=== PATIENT | male | born 1990 | race Caucasian/White ===

== ENCOUNTER 2016-10-06 15:40 | Inpatient (IN) | payer OTHER ==
[~2016-10-06] VITALS: Ht 182.9 cm; Wt 94.9 kg
[2016-10-06] MEDS ORDERED: SODIUM CHLORIDE 0.9% 1000ML 1,000 ML IV STA (16:19)
[2016-10-06] MEDS ORDERED: PANTOprazole INJ 80 MG in DEXTROSE 5% 100ML IV SCH (16:30)
[2016-10-06 16:42] LABS: BASO % 0.1 %; BASO ABS # 0.01 K/uL (0-0.2); COMPLETE YES; EOS % 0.3 %; HEMATOCRIT 27.6 % (42-52); IG% 0.3 %; LYMPH % 12.6 %; LYMPH ABS # 1.39 K/uL (1.2-3.4); MEAN CELL VOLUME 83.4 fL (80-100); MEAN CORPUSCULAR HEMOGLOBIN 29.3 pg (25-34); MEAN CORPUSCULAR HGB CONC 35.1 g/dl (32-36); MEAN PLATELET VOLUME 8.7 fL (7.4-10.4); MONO % 7.9 %; NEUT % 78.8 %; PLATELET COUNT 198 K/uL (130-400); RED BLOOD COUNT 3.31 M/uL (4.7-6.1); WHITE BLOOD COUNT 11.04 K/uL (4.8-10.8)
[2016-10-06] MEDS ORDERED: PANTOprazole INJ 40 MG in DEXTROSE 5% 100ML IV SCH (16:45)
[2016-10-06 17:00] LABS: BUN/CREATININE RATIO 18.8 (10-20); CALCIUM 8.2 mg/dl (8.5-10.1); CREATININE 1.2 mg/dl (0.60-1.40); POTASSIUM 4.5 mmol/L (3.5-5.1)
[2016-10-06 17:03] LABS: ALB/GLOB RATIO 1.4 (0.9-2)
[2016-10-06 17:04] LABS: PARTIAL THROMBOPLASTIN RATIO 0.9; PROTHROMBIN TIME (PATIENT) 10.8 SECONDS (9.0-12.0)
--- NOTE | 2016-10-06 17:20 | EMERGENCY ROOM VISIT NOTE ---
History First contact with patient: 16:11 Chief Complaint: GI ASSESSMENT Stated Complaint: GI BLEED Nursing Triage Summary: Pt arrives to ER via ALS from [facility]. Dark tarry stools and coffee ground emesis x2 days. Pt had syncopal episode in yard this afternoon. Pt is reportedly hemacult positive per [facility] reports. Pt has no complaints of pain at this time. History of Present Illness The patient is a 26 year old male who presents to the Emergency Room with complaints of GI bleeding. The patient states that 2 days ago he developed what he describes as coffee-ground emesis. He states that the same day he developed very dark-colored stool. The patient states that this has persisted. He states that today he was outside and had a syncopal episode. The patient is an inmate at [facility]. He was seen at [facility]. He had a positive Hemoccult stool. According to documentation, the patient also had positive orthostatic vital signs. The patient did receive IV fluids prior to arrival. The patient denies any true pain. He denies any shortness of breath or chest pain. He denies any abdominal pain. He denies any urinary symptoms. The patient denies any history of GI bleeding. He denies any history of reflux. Review of Systems A 10 system review of systems was completed with positives and pertinent negatives listed in the HPI. Past Medical/Surgical History Medical Problems: (1) Symptomatic anemia (2) Upper GI bleed Patient denies Social History Smoking Status: Former Smoker Housing Status: other ([facility]) Current/Historical Medications No Active Prescriptions or Reported Meds Physical Exam Vital Signs Date Time Temp Pulse Resp B/P (MAP) Pulse Ox O2 Delivery O2 Flow Rate FiO2 10/06/16 17:40 90 16 114/74 100 Room Air 10/06/16 16:36 85 120/67 100 Room Air 79 130/71 86 132/79 10/06/16 15:50 93 10/06/16 15:50 36.6 97 16 124/73 100 Room Air Physical Exam VITALS: Vitals are noted on the nurse's note and reviewed by myself. Vital signs stable. GENERAL: This is a 26-year-old male, in no acute distress, nondiaphoretic, well- developed well-nourished. SKIN: The skin was without rashes, erythema, edema, or bruising. There is no tenting of the skin. Capillary reflex less than 2 seconds. HEAD: Normocephalic atraumatic. EARS: The external ears are normal in appearance. EYES: Pupils equal round and reactive to light and accommodation. Conjunctivae without injection, sclerae without icterus. Extraocular movements intact. NOSE: Patent, turbinates without inflammation or discharge. MOUTH: Mucous membranes moist. Tonsils are not enlarged. Pharynx without erythema or exudate. Uvula midline. Airway patent. Tongue does not deviate. NECK: Supple without nuchal rigidity. No JVD. HEART: Regular rate and rhythm without murmurs gallops or rubs. LUNGS: Clear to auscultation bilaterally without wheezes, rales or rhonchi. No retractions or accessory muscle use. ABDOMEN: Positive bowel sounds x 4. Soft, nontender, without masses or organomegaly. GI: there was not much stool in the rectum. A very small amount of stool was trace guaiac positive. MUSCULOSKELETAL: No muscle atrophy, erythema, or edema noted. Full range of motion in all extremities. Normal gait. Strength 5/5 throughout. NEURO: Patient was alert and oriented to person place and time. No focal neurological deficits. Medical Decision & Procedures ER Provider Diagnostic Interpretation: ABDOMEN 2VIEW W/PA CHEST RTN CLINICAL HISTORY: 26 years-old Male presenting with gi bleeding, syncope. TECHNIQUE: PA view of the chest and supine and upright views of the abdomen were obtained. COMPARISON: None. FINDINGS: Cardiomediastinal silhouette normal. Lungs and pleural spaces clear. Normal bowel gas pattern. No evidence of free intraperitoneal gas, pneumatosis, or portal venous gas. Osseous structures normal. IMPRESSION: 1. No acute cardiopulmonary disease. No radiographic evidence of acute intra-abdominal pathology. Laboratory Results 10/06/16 16:29 Red Blood Count 3.31, Mean Corpuscular Volume 83.4, Mean Corpuscular Hemoglobin 29.3, Mean Corpuscular Hemoglobin Concent 35.1, Mean Platelet Volume 8.7, Neutrophils (%) (Auto) 78.8, Lymphocytes (%) (Auto) 12.6, Monocytes (%) (Auto) 7.9, Eosinophils (%) (Auto) 0.3, Basophils (%) (Auto) 0.1, Neutrophils # (Auto) 8.71, Lymphocytes # (Auto) 1.39, Monocytes # (Auto) 0.87, Eosinophils # (Auto) 0.03, Basophils # (Auto) 0.01 10/06/16 16:29 Test 10/06/16 16:29 10/06/16 18:30 White Blood Count 11.04 K/uL (4.8-10.8) Red Blood Count 3.31 M/uL (4.7-6.1) Hemoglobin 9.7 g/dL (14.0-18.0) Hematocrit 27.6 % (42-52) Mean Corpuscular Volume 83.4 fL (80-100) Mean Corpuscular Hemoglobin 29.3 pg (25-34) Mean Corpuscular Hemoglobin Concent 35.1 g/dl (32-36) Platelet Count 198 K/uL (130-400) Mean Platelet Volume 8.7 fL (7.4-10.4) Neutrophils (%) (Auto) 78.8 % Lymphocytes (%) (Auto) 12.6 % Monocytes (%) (Auto) 7.9 % Eosinophils (%) (Auto) 0.3 % Basophils (%) (Auto) 0.1 % Neutrophils # (Auto) 8.71 K/uL (1.4-6.5) Lymphocytes # (Auto) 1.39 K/uL (1.2-3.4) Monocytes # (Auto) 0.87 K/uL (0.11-0.59) Eosinophils # (Auto) 0.03 K/uL (0-0.5) Basophils # (Auto) 0.01 K/uL (0-0.2) RDW Standard Deviation 38.6 fL (36.4-46.3) RDW Coefficient of Variation 12.6 % (11.5-14.5) Immature Granulocyte % (Auto) 0.3 % Immature Granulocyte # (Auto) 0.03 K/uL (0.00-0.02) Prothrombin Time 10.8 SECONDS (9.0-12.0) Prothromb Time International Ratio 1.0 (0.9-1.1) Activated Partial Thromboplast Time 22.5 SECONDS (21.0-31.0) Partial Thromboplastin Ratio 0.9 Anion Gap 5.0 mmol/L (3-11) Est Creatinine Clear Calc Drug Dose 113.7 ml/min Estimated GFR () 96.1 Estimated GFR (Non- 83.0 BUN/Creatinine Ratio 18.8 (10-20) Lactic Acid Level 1.1 mmol/L (0.4-2.0) Calcium Level 8.2 mg/dl (8.5-10.1) Total Bilirubin 0.8 mg/dl (0.2-1) Aspartate Amino Transf (AST/SGOT) 15 U/L (15-37) Alanine Aminotransferase (ALT/SGPT) 18 U/L (12-78) Alkaline Phosphatase 54 U/L (45-117) Total Protein 6.2 gm/dl (6.4-8.2) Albumin 3.6 gm/dl (3.4-5.0) Globulin 2.6 gm/dl (2.5-4.0) Albumin/Globulin Ratio 1.4 (0.9-2) Lipase 171 U/L (73-393) Urine Color YELLOW Urine Appearance CLEAR (CLEAR) Urine pH 7.5 (4.5-7.5) Urine Specific [place] 1.018 (1.000-1.030) Urine Protein NEG (NEG) Urine Glucose (UA) NEG (NEG) Urine Ketones NEG (NEG) Urine Occult Blood NEG (NEG) Urine Nitrite NEG (NEG) Urine Bilirubin NEG (NEG) Urine Urobilinogen NEG (NEG) Urine Leukocyte Esterase NEG (NEG) Medications Administered Medications (Trade) Dose Ordered Sig/Ferdinand Route Start Time Stop Time Status Last Admin Dose Admin Sodium Chloride 1,000 ml @ 999 mls/hr Q1H1M STAT IV 10/06/16 16:19 10/06/16 17:19 DC 10/06/16 16:39 999 MLS/HR Pantoprazole Sodium 80 mg/ Dextrose 120 ml @ 480 mls/hr TODAY@1630 IV 10/06/16 16:30 10/06/16 16:44 DC 10/06/16 16:39 480 MLS/HR Pantoprazole Sodium 40 mg/ Dextrose 100 ml @ 20 mls/hr Q5H IV 10/06/16 16:45 10/06/16 21:44 DC 10/06/16 16:58 20 MLS/HR Sodium Chloride 1,000 ml @ 100 mls/hr Q10H IV 10/06/16 18:49 11/05/16 18:48 10/06/16 20:47 100 MLS/HR Procedure The patient was monitored on a shelter monitor. They maintained a normal sinus rhythm without ectopy. ECG Indication: syncope Rate (beats per minute): 93 Rhythm: normal sinus Findings: no acute ischemic change Comparison ECG Date: no prior available ED Course The patient was seen and examined. Previous visits were reviewed. The patient does not have a fever. He does have a mild leukocytosis of 11.04. His hemoglobin is low at 9.7 and hematocrit 27.6. His BUN is elevated at 23. INR is 1.0. Urinalysis is negative. Plain films of the abdomen did not reveal any free air The patient was hydrated with normal saline solution He was started on Protonix bolus and drip The patient presents to the emergency department with symptomatic anemia. The patient reports coffee ground emesis and melanic stools for the last 2 days. He had a syncopal episode earlier today. According to documentation from the [place] [facility], his stool was guaiac positive and he had positive orthostatic vital signs. The patient had received IV fluids prior to arrival in the emergency department and he was not orthostatic. The patient was anemic with hemoglobin 9.7. He does not have any history of anemia and there is no prior for comparison. The patient would benefit from further evaluation and management in the hospital. The case was discussed with the hospitalist service and they will evaluate the patient. The case was discussed with Dr. gamble who agrees with the assessment and plan. Medical Decision DIFFERENTIAL DIAGNOSIS: Hepatitis, cholecystitis, cholangitis, biliary colic, pancreatitis, pneumonia, subdiaphragmatic abscess, appendicitis, inguinal hernia , nephrolithiasis, inflammatory bowel disease, mesenteric adenitis, peptic ulcer disease, GERD, gastritis, pancreatitis, myocardial infarction, pericarditis, ruptured aortic aneurysm, appendicitis, gastroenteritis, bowel obstruction, splenic infarct, diverticulitis, mesenteric ischemia, metabolic, peritonitis, among others. Medication Reconcilliation Current Medication List: was personally reviewed by [facility] Blood Pressure Screening Patient's blood pressure: Normal blood pressure Blood pressure disposition: Did not require urgent referral Impression Primary Impression: Symptomatic anemia Additional Impression: Upper GI bleed Departure Information Dispostion Admitted as an inpatient Prescriptions No Active Prescriptions or Reported Meds Referrals Mane BRASHER (PCP) Patient Instructions My [facility] Problem Qualifiers
--- NOTE | 2016-10-06 17:39 | DIAGNOSTIC IMAGING REPORT ---
ABDOMEN 2VIEW W/PA CHEST RTN CLINICAL HISTORY: 26 years-old Male presenting with gi bleeding, syncope. TECHNIQUE: PA view of the chest and supine and upright views of the abdomen were obtained. COMPARISON: None. FINDINGS: Cardiomediastinal silhouette normal. Lungs and pleural spaces clear. Normal bowel gas pattern. No evidence of free intraperitoneal gas, pneumatosis, or portal venous gas. Osseous structures normal. IMPRESSION: 1. No acute cardiopulmonary disease. No radiographic evidence of acute intra-abdominal pathology. Electronically signed by: Yandel Reid M.D. 10/06/2016 5:38 PM Dictated Date/Time: 10/06/2016 5:36 PM
[2016-10-06 18:51] LABS: URINE APPEARANCE CLEAR (CLEAR); URINE BILIRUBIN NEG (NEG); URINE COLOR YELLOW; URINE NITRITE NEG (NEG); URINE PH 7.5 (4.5-7.5); URINE SPECIFIC GRAVITY 1.018 (1.000-1.030); UROBILINOGEN NEG (NEG); ZZUR CULT IF INDIC CLEAN CATCH NO
[2016-10-06 18:55] LABS: MANUAL MICROSCOPIC REQUIRED? NO; REVIEW REQ? NO
[2016-10-06] MEDS ORDERED: ONDANSETRON INJ 2 MG/ML 2 ML VIAL IV PRN (19:00)
--- NOTE | 2016-10-06 19:08 | History and Physical ---
History & Physical Date & Time of Service: Oct 06, 2016 at 19:00 Chief Complaint: Gi Bleed Primary Care Physician: Mane BRASHER History of Present Illness Source: patient This is a 26 year old male with no medical history presents with coffee ground, tarry emesis that began on Monday. He states he was in his usual state of health when he vomited chewing tobacco type vomitus. Later that day he noted that he had very dark colored stool as well. States that he had no pain associated with this. On the day of arrival, patient became very dizzy and had LOC. He was given some fluids en route and felt better. Upon arrival, noted to have Hgb of 9.7. No previous labwork present to compare. Patient states he has a family history of GI issues, including a paternal grandfather with stomach cancer and mom with unknown GI disease. He has never had this before. Denies medication use or any OTC medications. Has not taken NSAIDs recently. No smoking/alcohol use. Currently, symptom-free. Social History Smoking Status: Former Smoker Allergies Coded Allergies: No Known Allergies (Unverified , 10/06/16) Home Medications No Active Prescriptions or Reported Meds Review of Systems Constitutional: + weakness, + fatigue, No fever, No chills, No sweats, No weight loss Respiratory: + hemoptysis, No cough, No sputum, No wheezing, No shortness of breath, No dyspnea on exertion, No dyspnea at rest Cardiovascular: No chest pain, No edema, No palpitations Abdomen: + vomiting, + GI bleeding, No pain, No nausea, No diarrhea, No constipation Musculoskeletal: No joint pain Genitourinary - Male: No hematuria Neurologic: + weakness, + balance problems Endocrine: + fatigue Hematologic / Lymphatic: + abnormal bleeding/bruising Integumentary: No rash Allergic / Immunologic: No environmental allergies, No seasonal allergies Physical Exam Vital Signs Date Time Temp Pulse Resp B/P (MAP) Pulse Ox O2 Delivery O2 Flow Rate FiO2 10/06/16 17:40 90 16 114/74 100 Room Air 10/06/16 16:36 85 120/67 100 Room Air 79 130/71 86 132/79 10/06/16 15:50 93 10/06/16 15:50 36.6 97 16 124/73 100 Room Air General Appearance: WD/WN, no apparent distress Head: normocephalic, atraumatic ENT: hearing grossly normal Respiratory/Chest: chest non-tender, lungs clear, normal breath sounds, no respiratory distress, no accessory muscle use Cardiovascular: regular rate, rhythm, no edema, no murmur Abdomen/GI: normal bowel sounds, non tender, soft Extremities/Musculoskelatal: normal capillary refill, no pedal edema Neurologic/Psych: no motor/sensory deficits, alert, normal mood/affect, oriented x 3 Skin: normal color Diagnostics Laboratory Results Results Past 24 Hours Test 10/06/16 16:29 10/06/16 18:30 Range/Units White Blood Count 11.04 4.8-10.8 K/uL Red Blood Count 3.31 4.7-6.1 M/uL Hemoglobin 9.7 14.0-18.0 g/dL Hematocrit 27.6 42-52 % Mean Corpuscular Volume 83.4 80-100 fL Mean Corpuscular Hemoglobin 29.3 25-34 pg Mean Corpuscular Hemoglobin Concent 35.1 32-36 g/dl Platelet Count 198 130-400 K/uL Mean Platelet Volume 8.7 7.4-10.4 fL Neutrophils (%) (Auto) 78.8 % Lymphocytes (%) (Auto) 12.6 % Monocytes (%) (Auto) 7.9 % Eosinophils (%) (Auto) 0.3 % Basophils (%) (Auto) 0.1 % Neutrophils # (Auto) 8.71 1.4-6.5 K/uL Lymphocytes # (Auto) 1.39 1.2-3.4 K/uL Monocytes # (Auto) 0.87 0.11-0.59 K/uL Eosinophils # (Auto) 0.03 0-0.5 K/uL Basophils # (Auto) 0.01 0-0.2 K/uL RDW Standard Deviation 38.6 36.4-46.3 fL RDW Coefficient of Variation 12.6 11.5-14.5 % Immature Granulocyte % (Auto) 0.3 % Immature Granulocyte # (Auto) 0.03 0.00-0.02 K/uL Prothrombin Time 10.8 9.0-12.0 SECONDS Prothromb Time International Ratio 1.0 0.9-1.1 Activated Partial Thromboplast Time 22.5 21.0-31.0 SECONDS Partial Thromboplastin Ratio 0.9 Sodium Level 139 136-145 mmol/L Potassium Level 4.5 3.5-5.1 mmol/L Chloride Level 107 98-107 mmol/L Carbon Dioxide Level 27 21-32 mmol/L Anion Gap 5.0 3-11 mmol/L Blood Urea Nitrogen 23 7-18 mg/dl Creatinine 1.20 0.60-1.40 mg/dl Est Creatinine Clear Calc Drug Dose 113.7 ml/min Estimated GFR () 96.1 Estimated GFR (Non- 83.0 BUN/Creatinine Ratio 18.8 10-20 Random Glucose 100 70-99 mg/dl Lactic Acid Level 1.1 0.4-2.0 mmol/L Calcium Level 8.2 8.5-10.1 mg/dl Total Bilirubin 0.8 0.2-1 mg/dl Aspartate Amino Transf (AST/SGOT) 15 15-37 U/L Alanine Aminotransferase (ALT/SGPT) 18 12-78 U/L Alkaline Phosphatase 54 45-117 U/L Total Protein 6.2 6.4-8.2 gm/dl Albumin 3.6 3.4-5.0 gm/dl Globulin 2.6 2.5-4.0 gm/dl Albumin/Globulin Ratio 1.4 0.9-2 Lipase 171 73-393 U/L Urine Color YELLOW Urine Appearance CLEAR CLEAR Urine pH 7.5 4.5-7.5 Urine Specific [place] 1.018 1.000-1.030 Urine Protein NEG NEG Urine Glucose (UA) NEG NEG Urine Ketones NEG NEG Urine Occult Blood NEG NEG Urine Nitrite NEG NEG Urine Bilirubin NEG NEG Urine Urobilinogen NEG NEG Urine Leukocyte Esterase NEG NEG Diagnostic Radiology ABDOMEN 2VIEW W/PA CHEST RTN CLINICAL HISTORY: 26 years-old Male presenting with gi bleeding, syncope. TECHNIQUE: PA view of the chest and supine and upright views of the abdomen were obtained. COMPARISON: None. FINDINGS: Cardiomediastinal silhouette normal. Lungs and pleural spaces clear. Normal bowel gas pattern. No evidence of free intraperitoneal gas, pneumatosis, or portal venous gas. Osseous structures normal. IMPRESSION: 1. No acute cardiopulmonary disease. No radiographic evidence of acute intra-abdominal pathology. Normal EKG Impression Assessment and Plan his is a 26 year old male with no medical history presents with coffee ground emesis Upper GI Bleed Symptomatic Anemia history suggestive of a slow upper GI bleed, due to dark emesis and dark stools unsure of cause at this time PPI drip started and we can continue monitor in tele H/H q8 hours GI consulted for endoscopic evaluation; patient to have liquid diet tonight and NPO after midnight Zofran PRN type and crossed two units, hold transfusion for now IVFs - monitor BP FULL CODE VTE Prophylaxis VTE Risk Assessment Done? Y/N: Yes Risk Level: Very Low
[2016-10-06 20:45] VITALS: BP 133/75; PULSE 87; TEMP 37.1; O2SAT 100; Ht 182.9 cm; Wt 94.9 kg
[2016-10-06] MEDS: SODIUM CHLORIDE 0.9% 1000ML 1,000 ML IV SCH (20:47)
[2016-10-06] MEDS: PANTOprazole INJ 40 MG in DEXTROSE 5% 100ML IV SCH (21:44)
[2016-10-06 22:34] LABS: HEMATOCRIT 26.5 % (42-52)
[2016-10-07] VITALS (8 sets, daily range): BP systolic 106–147; BP diastolic 45–77; PULSE 65–82; TEMP 36.6–37; O2SAT 98–100
[2016-10-07] MEDS: PANTOprazole INJ 40 MG in DEXTROSE 5% 100ML IV SCH ×5 (02:26→23:03)
[2016-10-07] MEDS: SODIUM CHLORIDE 0.9% 1000ML 1,000 ML IV SCH ×3 (04:30→23:03)
[2016-10-07 06:55] LABS: BUN/CREATININE RATIO 11.7 (10-20); CALCIUM 8.9 mg/dl (8.5-10.1); CREATININE 1.1 mg/dl (0.60-1.40); POTASSIUM 3.9 mmol/L (3.5-5.1)
--- NOTE | 2016-10-07 08:37 | Progress Note ---
Subjective Date of Service: Oct 07, 2016. Subjective Pt evaluation today including: conversation w/ patient, physical exam, lab review, review of studies, review of inpatient medication list Saw/examined the patient in room 201 He's doing well, no dizziness, no bowel movements while here Some cramping around the umbilicus, but nothing significant no other issues to note Review of Systems Constitutional: No fever, No chills Respiratory: No shortness of breath Cardiac: No chest pain Abdomen: + GI bleeding, No pain, No nausea, No vomiting, No diarrhea Neurologic: No vertigo Medications Current Inpatient Medications Medications (Trade) Dose Ordered Sig/Ferdinand Route Start Time Stop Time Status Last Admin Dose Admin Sodium Chloride 1,000 ml @ 100 mls/hr Q10H IV 10/06/16 18:49 11/05/16 18:48 10/07/16 04:30 100 MLS/HR Ondansetron HCl (Zofran Inj) 4 mg Q6H PRN IV 10/06/16 19:00 11/05/16 18:59 Pantoprazole Sodium 40 mg/ Dextrose 100 ml @ 20 mls/hr Q5H IV 10/06/16 21:45 11/05/16 21:44 10/07/16 08:09 20 MLS/HR Objective Vital Signs Date Time Temp Pulse Resp B/P (MAP) Pulse Ox O2 Delivery O2 Flow Rate FiO2 10/07/16 08:00 Room Air 10/07/16 07:05 36.9 82 20 131/77 (95) 99 Room Air 10/07/16 04:30 Room Air 10/07/16 04:00 36.6 82 18 106/49 (68) 98 Room Air 10/07/16 00:00 36.6 78 18 131/54 (79) 99 Room Air 10/07/16 00:00 Room Air 10/06/16 20:45 37.1 87 16 133/75 100 Room Air 10/06/16 19:00 92 16 144/73 100 Room Air 10/06/16 17:40 90 16 114/74 100 Room Air 10/06/16 16:36 85 120/67 100 Room Air 79 130/71 86 132/79 10/06/16 15:50 93 10/06/16 15:50 36.6 97 16 124/73 100 Room Air Physical Exam General Appearance: no apparent distress Respiratory/Chest: lungs clear, normal breath sounds, no respiratory distress, no accessory muscle use Cardiovascular: regular rate, rhythm, no edema, no murmur Abdomen: normal bowel sounds, non tender, soft Laboratory Results Last 24 Hours Test 10/06/16 16:29 10/06/16 18:30 10/06/16 22:24 10/07/16 05:46 White Blood Count 11.04 K/uL Red Blood Count 3.31 M/uL Hemoglobin 9.7 g/dL 9.4 g/dL 10.2 g/dL Hematocrit 27.6 % 26.5 % 31.0 % Mean Corpuscular Volume 83.4 fL Mean Corpuscular Hemoglobin 29.3 pg Mean Corpuscular Hemoglobin Concent 35.1 g/dl Platelet Count 198 K/uL Mean Platelet Volume 8.7 fL Neutrophils (%) (Auto) 78.8 % Lymphocytes (%) (Auto) 12.6 % Monocytes (%) (Auto) 7.9 % Eosinophils (%) (Auto) 0.3 % Basophils (%) (Auto) 0.1 % Neutrophils # (Auto) 8.71 K/uL Lymphocytes # (Auto) 1.39 K/uL Monocytes # (Auto) 0.87 K/uL Eosinophils # (Auto) 0.03 K/uL Basophils # (Auto) 0.01 K/uL RDW Standard Deviation 38.6 fL RDW Coefficient of Variation 12.6 % Immature Granulocyte % (Auto) 0.3 % Immature Granulocyte # (Auto) 0.03 K/uL Prothrombin Time 10.8 SECONDS Prothromb Time International Ratio 1.0 Activated Partial Thromboplast Time 22.5 SECONDS Partial Thromboplastin Ratio 0.9 Sodium Level 139 mmol/L 141 mmol/L Potassium Level 4.5 mmol/L 3.9 mmol/L Chloride Level 107 mmol/L 108 mmol/L Carbon Dioxide Level 27 mmol/L 28 mmol/L Anion Gap 5.0 mmol/L 5.0 mmol/L Blood Urea Nitrogen 23 mg/dl 13 mg/dl Creatinine 1.20 mg/dl 1.10 mg/dl Est Creatinine Clear Calc Drug Dose 113.7 ml/min 121.6 ml/min Estimated GFR () 96.1 106.8 Estimated GFR (Non- 83.0 92.2 BUN/Creatinine Ratio 18.8 11.7 Random Glucose 100 mg/dl 92 mg/dl Lactic Acid Level 1.1 mmol/L Calcium Level 8.2 mg/dl 8.9 mg/dl Total Bilirubin 0.8 mg/dl Aspartate Amino Transf (AST/SGOT) 15 U/L Alanine Aminotransferase (ALT/SGPT) 18 U/L Alkaline Phosphatase 54 U/L Total Protein 6.2 gm/dl Albumin 3.6 gm/dl Globulin 2.6 gm/dl Albumin/Globulin Ratio 1.4 Lipase 171 U/L Urine Color YELLOW Urine Appearance CLEAR Urine pH 7.5 Urine Specific [place] 1.018 Urine Protein NEG Urine Glucose (UA) NEG Urine Ketones NEG Urine Occult Blood NEG Urine Nitrite NEG Urine Bilirubin NEG Urine Urobilinogen NEG Urine Leukocyte Esterase NEG Assessment and Plan his is a 26 year old male with no medical history presents with coffee ground emesis Upper GI Bleed Symptomatic Anemia 10/07 H/H is stable blood pressure and HRs are both improved today he is NPO after midnight GI consulted; possible EGD? 10/06 history suggestive of a slow upper GI bleed, due to dark emesis and dark stools unsure of cause at this time PPI drip started and we can continue monitor in tele H/H q8 hours GI consulted for endoscopic evaluation; patient to have liquid diet tonight and NPO after midnight Zofran PRN type and crossed two units, hold transfusion for now IVFs - monitor BP FULL CODE
--- NOTE | 2016-10-07 09:40 | Gastrointestinal Consultation ---
Gastrointestinal Consultation Date of Consultation: Oct 07, 2016 Attending Physician: Antonette Sky Consulting Physician: Joe Pan Reason for Consultation: Coffee ground emesis, anemia History of Present Illness Patient is a 26 year old male [facility] inmate who presented to ED w syncope which he said was witnessed, lasted only a few mins and no signs of seizures/ convulsions. He had been c/o N/V x 2 days since Monday. He reports emesis looks like chewing tobacco. Also noticed stools that looks like charcoal, but not tarry or sticky. He denies any fever, chills but felt clammy. Denies any sick contact. No meds on regular basis including NSAIDs. Also denies any drugs or tobacco products. He never had any GI issues such as GERD, dysphagia, ulcer, bowel habits changes. Mother and sibling does have issues w diarrhea, and his grandfather w hx of stomach ca. No family hx of IBD. Upon eval he was noted to be anemic, Hgb 9.4. He didn't receive any blood transfusions, Hgb now 10.2. + mild leukocytosis WBC 11. BUN mildly elevated at 23, normal Cr. Chest/abd xray grossly normal. Rectal exam w guaiac positive stools. He hasn't had any emesis or BM since admitted. Past Medical/Surgical History Past Medical History: See above. Past Surgical History: None Family History See above Social History Smoking Status: Former Smoker Alcohol Use: none Drug Use: none Housing Status: other ([facility]) Allergies Coded Allergies: No Known Allergies (Unverified , 10/06/16) Current Medications Home Meds and Scripts Medications Dose Route/Sig Max Daily Dose Days Date Category No Active Prescriptions or Reported Medications Rx Review of Systems Constitutional: No fever, No chills Respiratory: No cough, No shortness of breath Abdomen: + pain (mid lower), + nausea, + vomiting, + GI bleeding, No diarrhea Neuro: + see HPI (syncopal episode prior to admission) Physical Exam Date Time Temp Pulse Resp B/P (MAP) Pulse Ox O2 Delivery O2 Flow Rate FiO2 10/07/16 09:05 36.9 82 20 131/77 99 Room Air 10/07/16 08:00 Room Air 10/07/16 07:05 36.9 82 20 131/77 (95) 99 Room Air 10/07/16 04:30 Room Air 10/07/16 04:00 36.6 82 18 106/49 (68) 98 Room Air 10/07/16 00:00 36.6 78 18 131/54 (79) 99 Room Air 10/07/16 00:00 Room Air 10/06/16 20:45 37.1 87 16 133/75 100 Room Air 10/06/16 19:00 92 16 144/73 100 Room Air 10/06/16 17:40 90 16 114/74 100 Room Air 10/06/16 16:36 85 120/67 100 Room Air 79 130/71 86 132/79 10/06/16 15:50 93 10/06/16 15:50 36.6 97 16 124/73 100 Room Air General Appearance: WD/WN, no apparent distress Eyes: normal inspection, PERRL, EOMI Neck: supple, no JVD, trachea midline Respiratory/Chest: normal breath sounds, no respiratory distress, no accessory muscle use Cardiovascular: regular rate, rhythm, no gallop, no murmur Abdomen: normal bowel sounds, non tender, soft Extremities: normal inspection, no pedal edema, no calf tenderness Neurologic/Psych: alert, normal mood/affect, oriented x 3 Skin: normal color, no jaundice, no rash Laboratory Results Last 24 Hours Test 10/06/16 16:29 10/06/16 18:30 10/06/16 22:24 10/07/16 05:46 White Blood Count 11.04 K/uL Red Blood Count 3.31 M/uL Hemoglobin 9.7 g/dL 9.4 g/dL 10.2 g/dL Hematocrit 27.6 % 26.5 % 31.0 % Mean Corpuscular Volume 83.4 fL Mean Corpuscular Hemoglobin 29.3 pg Mean Corpuscular Hemoglobin Concent 35.1 g/dl Platelet Count 198 K/uL Mean Platelet Volume 8.7 fL Neutrophils (%) (Auto) 78.8 % Lymphocytes (%) (Auto) 12.6 % Monocytes (%) (Auto) 7.9 % Eosinophils (%) (Auto) 0.3 % Basophils (%) (Auto) 0.1 % Neutrophils # (Auto) 8.71 K/uL Lymphocytes # (Auto) 1.39 K/uL Monocytes # (Auto) 0.87 K/uL Eosinophils # (Auto) 0.03 K/uL Basophils # (Auto) 0.01 K/uL RDW Standard Deviation 38.6 fL RDW Coefficient of Variation 12.6 % Immature Granulocyte % (Auto) 0.3 % Immature Granulocyte # (Auto) 0.03 K/uL Prothrombin Time 10.8 SECONDS Prothromb Time International Ratio 1.0 Activated Partial Thromboplast Time 22.5 SECONDS Partial Thromboplastin Ratio 0.9 Sodium Level 139 mmol/L 141 mmol/L Potassium Level 4.5 mmol/L 3.9 mmol/L Chloride Level 107 mmol/L 108 mmol/L Carbon Dioxide Level 27 mmol/L 28 mmol/L Anion Gap 5.0 mmol/L 5.0 mmol/L Blood Urea Nitrogen 23 mg/dl 13 mg/dl Creatinine 1.20 mg/dl 1.10 mg/dl Est Creatinine Clear Calc Drug Dose 113.7 ml/min 121.6 ml/min Estimated GFR () 96.1 106.8 Estimated GFR (Non- 83.0 92.2 BUN/Creatinine Ratio 18.8 11.7 Random Glucose 100 mg/dl 92 mg/dl Lactic Acid Level 1.1 mmol/L Calcium Level 8.2 mg/dl 8.9 mg/dl Total Bilirubin 0.8 mg/dl Aspartate Amino Transf (AST/SGOT) 15 U/L Alanine Aminotransferase (ALT/SGPT) 18 U/L Alkaline Phosphatase 54 U/L Total Protein 6.2 gm/dl Albumin 3.6 gm/dl Globulin 2.6 gm/dl Albumin/Globulin Ratio 1.4 Lipase 171 U/L Urine Color YELLOW Urine Appearance CLEAR Urine pH 7.5 Urine Specific [place] 1.018 Urine Protein NEG Urine Glucose (UA) NEG Urine Ketones NEG Urine Occult Blood NEG Urine Nitrite NEG Urine Bilirubin NEG Urine Urobilinogen NEG Urine Leukocyte Esterase NEG Impression Patient is a 26 year old male [facility] inmate who was brought in after a syncopal episode, hx of n/v x 2 days w tobacco grounds looking emesis and charcoal colored stools per pt's report. He was noted to be anemic w Hgb 9-10. No more emesis/BM since admission. Plan - Keep NPO for EGD eval today; if negative will be ok for DC. - Continue PPI gtt. - Further recs after EGD. I saw and evaluated the patient. He presented with a significant drop in his blood count and melena. EGD requested for further evaluation. Physical examination No obvious distress, no abdominal tenderness Impression: Patient with suspected upper GI bleeding. We're planning for upper endoscopy today for therapy and further recommendations. Recommendations Nothing by mouth Continue Protonix EGD pending today Avoid nonsteroidals
[2016-10-07] MEDS ORDERED: FENTANYL CITRATE INJ 50 MCG/1 ML 2 ML VIAL ONE (14:26)
[2016-10-07] MEDS ORDERED: PROPOFOL IV EMULSION 10 MG/ML 20 ML VIAL IV ONE ×2 (14:26→14:59)
[2016-10-07] MEDS ORDERED: LIDOCAINE HCL 2% 2 ML VIAL (20MG/ML) ONE (14:26)
--- NOTE | 2016-10-07 14:46 | History & Physical Bridge Note ---
H&P Re-Evaluation Bridge Note: I have examined the patient, reviewed the History & Physical and in the interval since the performance of the History & Physical I have noted the following changes of clinical significance: No changes noted
[2016-10-07] MEDS ORDERED: EpINEphrine INJ 1MG/ML AMP 1 MG/ML AMP ONE (15:00)
--- NOTE | 2016-10-07 15:17 | Progress Note ---
Progress Note Date of Service Oct 07, 2016. Progress Note EGD completed today. Findings Flores-Quiroz tear at the gastroesophageal junction with evidence of recent bleeding and a visible vessel. This was treated with epinephrine injection and cautery endotherapy Recommendations Avoid nonsteroidals for 6 weeks Protonix drip continue for another 48 hours Upon discharge Protonix 40 mg 1 time daily for 12 weeks EGD in 3 months Would recommend an iron supplement 1-2 times daily for 8 weeks Advance to a liquid diet today Advance to regular diet on Monday
--- NOTE | 2016-10-07 15:23 | Anesthesiology Progress Note ---
Anesthesia Post Op Note Date & Time Oct 07, 2016 at 15:23 Vital Signs Pain Intensity: 0.0 Vital Signs Past 12 Hours Date Time Temp Pulse Resp B/P (MAP) Pulse Ox O2 Delivery O2 Flow Rate FiO2 10/07/16 15:20 88 16 134/75 (94) 100 Room Air 10/07/16 15:05 106 14 132/54 (80) 100 Room Air 10/07/16 14:29 36.6 76 18 101/57 (72) 99 Room Air 10/07/16 12:00 Room Air 10/07/16 11:13 36.8 74 20 140/67 (91) 100 Room Air 10/07/16 09:05 36.9 82 20 131/77 99 Room Air 10/07/16 08:00 Room Air 10/07/16 07:05 36.9 82 20 131/77 (95) 99 Room Air 10/07/16 04:30 Room Air 10/07/16 04:00 36.6 82 18 106/49 (68) 98 Room Air Notes Mental Status: alert / awake / arousable, participated in evaluation Pt Amnestic to Procedure: Yes Nausea / Vomiting: adequately controlled Pain: adequately controlled Airway Patency, RR, SpO2: stable & adequate BP & HR: stable & adequate Hydration State: stable & adequate Anesthetic Complications: no major complications apparent
--- NOTE | 2016-10-07 16:10 | GI REPORT ---
Procedure Date: 10/07/2016 2:35 PM Procedure: Upper GI endoscopy Indications: Melena Medicines: Monitored Anesthesia Care Complications: No immediate complications. Estimated blood loss: Minimal. Estimated Blood Loss: Estimated blood loss was minimal. Procedure: Pre-Anesthesia Assessment: - Prior to the procedure, a History and Physical was performed, and patient medications, allergies and sensitivities were reviewed. The patient's tolerance of previous anesthesia was reviewed. - The risks and benefits of the procedure and the sedation options and risks were discussed with the patient. All questions were answered and informed consent was obtained. - Patient identification and proposed procedure were verified prior to the procedure by the physician, the nurse and the educational administrator. The procedure was verified in the procedure room. - Pre-procedure physical examination revealed no contraindications to sedation. - ASA Grade Assessment: II - A patient with mild systemic disease. - After reviewing the risks and benefits, the patient was deemed in satisfactory condition to undergo the procedure. - Immediately prior to administration of medications, the patient was re-assessed for adequacy to receive sedatives. - The heart rate, respiratory rate, oxygen saturations, blood pressure, adequacy of pulmonary ventilation, and response to care were monitored throughout the procedure. - The physical status of the patient was re-assessed after the procedure. After obtaining informed consent, the endoscope was passed under direct vision. Throughout the procedure, the patient's blood pressure, pulse, and oxygen saturations were monitored continuously. The scope was introduced through the mouth, and advanced to the third part of duodenum. The upper GI endoscopy was accomplished without difficulty. The patient tolerated the procedure well. Findings: The upper third of the esophagus and middle third of the esophagus were normal. An inlet patch was seen just below the cricopharyngeal region. One superficial esophageal ulcer with no bleeding, but with stigmata of recent bleeding consisting of a red spot and visible vessel was found at the gastroesophageal junction. The lesion was 4 mm in largest dimension. Area was successfully injected with 1 mL of a 1:10,000 solution of epinephrine for hemostasis. Coagulation for hemostasis using multipolar 7 Fr Silver probe was successful. Patchy mild inflammation characterized by erythema and granularity was found in the gastric body. The examined duodenum was normal. Impression: - Normal upper third of esophagus and middle third of esophagus. - Inlet patch seen - Non-bleeding esophageal ulcer/Flores-pereyra tear. Injected. Treated with a monopolar probe. - Gastritis. - Normal examined duodenum. Recommendation: - Return patient to hospital [facility] for ongoing care. - Full liquid diet today. - Give Protonix (pantoprazole): 8 mg/hr IV by continuous infusion for 2 days. Then Protonix 40 mg per day for 12 weeks - Repeat EGD in 8 to 12 weeks. Joe Pan D.O. Joe Pan, 10/07/2016 3:10:43 PM This report has been signed electronically. Note Initiated On: 10/07/2016 2:35 PM I attest to the content of the Intraoperative Record and orders documented therein, exceptions below
[2016-10-07 16:21] LABS: HEMATOCRIT 28.2 % (42-52)
[2016-10-08] VITALS (8 sets, daily range): BP systolic 97–138; BP diastolic 49–71; PULSE 59–79; TEMP 36.6–36.9; O2SAT 94–100
[2016-10-08] MEDS: PANTOprazole INJ 40 MG in DEXTROSE 5% 100ML IV SCH ×5 (03:50→23:46)
[2016-10-08 05:42] LABS: HEMATOCRIT 26.5 % (42-52); MEAN CELL VOLUME 85.2 fL (80-100); MEAN CORPUSCULAR HEMOGLOBIN 29.3 pg (25-34); MEAN CORPUSCULAR HGB CONC 34.3 g/dl (32-36); MEAN PLATELET VOLUME 8.4 fL (7.4-10.4); PLATELET COUNT 182 K/uL (130-400); RED BLOOD COUNT 3.11 M/uL (4.7-6.1); WHITE BLOOD COUNT 5.83 K/uL (4.8-10.8)
[2016-10-08] MEDS: FERROUS SULFATE 325 MG TAB PO SCH ×2 (08:05→17:09)
--- NOTE | 2016-10-08 11:15 | Progress Note ---
Medicine Progress Note Date & Time of Visit: Oct 08, 2016 at 11:07. Subjective tolerating regular diet this morning no BM since admission lightheadedness with head movement and ambulation has resolved pt denies pain this morning discussed big plan with him including EGD in 3 months as outpatient. Objective Last 8 Hrs Date Time Temp Pulse Resp B/P (MAP) Pulse Ox O2 Delivery O2 Flow Rate FiO2 10/08/16 08:00 Room Air 10/08/16 07:44 36.8 59 18 97/53 (68) 100 Room Air 10/08/16 04:25 36.7 69 18 111/63 (79) 97 Room Air 10/08/16 04:00 Room Air Physical Exam: GEN: WNWD, in no acute distress, alert and appropriate HEENT: NC/AT, PERRL, normal sclerae, MMM CARDIO: reg rate, S1/2 heard without m/g/r LUNGS: CTA bilaterally, no crackles, rales or wheezes, good diaphragmatic excursion ABD: soft, non-tender, non-distended, no rebound or guarding, +BS EXTREMITY: RP and DP palpable 2+ bilat, no LE swelling or edema, extremities are warm and well-perfused NEURO: CN 2-12 intact, sensation intact throughout, no focal deficits. MUSC: 5/5 strength throughout, no focal deficits SKIN: warm and dry Laboratory Results: 10/08/16 05:22 10/07/16 05:46 Test 10/06/16 16:29 10/06/16 18:30 10/07/16 05:46 10/08/16 05:22 Immature Granulocyte % (Auto) 0.3 % White Blood Count 11.04 K/uL (4.8-10.8) Red Blood Count 3.31 M/uL (4.7-6.1) 3.11 M/uL (4.7-6.1) Hemoglobin 9.7 g/dL (14.0-18.0) Hematocrit 27.6 % (42-52) Mean Corpuscular Volume 83.4 fL (80-100) 85.2 fL (80-100) Mean Corpuscular Hemoglobin 29.3 pg (25-34) 29.3 pg (25-34) Mean Corpuscular Hemoglobin Concent 35.1 g/dl (32-36) 34.3 g/dl (32-36) Platelet Count 198 K/uL (130-400) Mean Platelet Volume 8.7 fL (7.4-10.4) 8.4 fL (7.4-10.4) Neutrophils (%) (Auto) 78.8 % Lymphocytes (%) (Auto) 12.6 % Monocytes (%) (Auto) 7.9 % Eosinophils (%) (Auto) 0.3 % Basophils (%) (Auto) 0.1 % Neutrophils # (Auto) 8.71 K/uL (1.4-6.5) Lymphocytes # (Auto) 1.39 K/uL (1.2-3.4) Monocytes # (Auto) 0.87 K/uL (0.11-0.59) Eosinophils # (Auto) 0.03 K/uL (0-0.5) Basophils # (Auto) 0.01 K/uL (0-0.2) Immature Granulocyte # (Auto) 0.03 K/uL (0.00-0.02) Prothrombin Time 10.8 SECONDS (9.0-12.0) Prothromb Time International Ratio 1.0 (0.9-1.1) Activated Partial Thromboplast Time 22.5 SECONDS (21.0-31.0) Partial Thromboplastin Ratio 0.9 Lactic Acid Level 1.1 mmol/L (0.4-2.0) Total Bilirubin 0.8 mg/dl (0.2-1) Aspartate Amino Transf (AST/SGOT) 15 U/L (15-37) Alanine Aminotransferase (ALT/SGPT) 18 U/L (12-78) Alkaline Phosphatase 54 U/L (45-117) Total Protein 6.2 gm/dl (6.4-8.2) Albumin 3.6 gm/dl (3.4-5.0) Globulin 2.6 gm/dl (2.5-4.0) Albumin/Globulin Ratio 1.4 (0.9-2) Lipase 171 U/L (73-393) Urine Color YELLOW Urine Appearance CLEAR (CLEAR) Urine pH 7.5 (4.5-7.5) Urine Specific [place] 1.018 (1.000-1.030) Urine Protein NEG (NEG) Urine Glucose (UA) NEG (NEG) Urine Ketones NEG (NEG) Urine Occult Blood NEG (NEG) Urine Nitrite NEG (NEG) Urine Bilirubin NEG (NEG) Urine Urobilinogen NEG (NEG) Urine Leukocyte Esterase NEG (NEG) Anion Gap 5.0 mmol/L (3-11) Est Creatinine Clear Calc Drug Dose 121.6 ml/min Estimated GFR () 106.8 Estimated GFR (Non- 92.2 BUN/Creatinine Ratio 11.7 (10-20) Calcium Level 8.9 mg/dl (8.5-10.1) RDW Standard Deviation 39.7 fL (36.4-46.3) RDW Coefficient of Variation 12.9 % (11.5-14.5) Last 24 Hours Test 10/07/16 16:12 10/08/16 05:22 Hemoglobin 9.8 g/dL 9.1 g/dL Hematocrit 28.2 % 26.5 % White Blood Count 5.83 K/uL Red Blood Count 3.11 M/uL Mean Corpuscular Volume 85.2 fL Mean Corpuscular Hemoglobin 29.3 pg Mean Corpuscular Hemoglobin Concent 34.3 g/dl RDW Standard Deviation 39.7 fL RDW Coefficient of Variation 12.9 % Platelet Count 182 K/uL Mean Platelet Volume 8.4 fL Assessment & Plan 26 yo M with no NSAID use, baseline medical problems, reports of food poisoning , who has been incarcerated since Dec 2015 presents with symptomatic anemia ( syncope) 2/2 UGIB. He is s/p EGD yesterday with findings of a MW tear that was injected and cauterized as well as gastritis. He is on PPI drip for 48 hours with transition to PPI PO and iron supplementation. 1. Symptomatic anemia 2/2 UGIB-EGD findings with treatment yesterday as above. No further BMs since admission, denies nausea or vomiting, denies lightheadedness with ambulating to bathroom. H/H stable since admission. Tolerating regular diet. Transfer to medical floor. Cont Protonix drip through tomorrow and transition to Protonix 40mg daily and iron supplementation. Stopped IVF as tolerating PO. DVT proph-contraindicated in setting of bleed FULL CODE [facility] medical therapy completed. Likely 1-2 days DO Tracy Suarez Hospitalist Consultants: ERYN-Maxim Current Inpatient Medications: Current Inpatient Medications Medications (Trade) Dose Ordered Sig/Ferdinand Route Start Time Stop Time Status Last Admin Dose Admin Sodium Chloride 1,000 ml @ 100 mls/hr Q10H IV 10/06/16 18:49 11/05/16 18:48 10/07/16 23:03 100 MLS/HR Ondansetron HCl (Zofran Inj) 4 mg Q6H PRN IV 10/06/16 19:00 11/05/16 18:59 Pantoprazole Sodium 40 mg/ Dextrose 100 ml @ 20 mls/hr Q5H IV 10/06/16 21:45 11/05/16 21:44 10/08/16 08:05 20 MLS/HR Ferrous Sulfate (Feosol Tab) 325 mg BIDM PO 10/08/16 07:30 11/07/16 07:29 10/08/16 08:05 325 MG
--- NOTE | 2016-10-08 15:51 | Progress Note ---
Progress Note Date of Service Oct 08, 2016. Progress Note Chart reviewed. Hgb stable. Tolerating PO. Remains on PPI gtt. A/p: MW tear with non bleeding visible vessel s/p injxn and cautery - No evidence of recurrent bleeding. Cont PPI gtt tomorrow, then plan for d/c home on reg diet, BID PPI therapy x 2 weeks.
[2016-10-09 00:04] VITALS: BP_SYST 142; BP_SYST 144; BP_SYST 153; BP_DIAS 71; BP_DIAS 77; BP_DIAS 98; PULSE 73; PULSE 80; PULSE 90; TEMP 36.7; O2SAT 99
[2016-10-09] MEDS: PANTOprazole INJ 40 MG in DEXTROSE 5% 100ML IV SCH ×2 (04:47→09:44)
[2016-10-09 07:57] VITALS: BP 142/69; PULSE 81; TEMP 36.7; O2SAT 100
[2016-10-09] MEDS: FERROUS SULFATE 325 MG TAB PO SCH (07:57)
[2016-10-09] MEDS ORDERED: PANT40TA PO (13:13)
--- NOTE | 2016-10-09 13:18 | Discharge Instructions ---
Discharge Instructions Date of Service Oct 09, 2016. Admission Reason for Admission: Symptomatic Anemia, Upper Gi Bleed Discharge Discharge Diagnosis / Problem: Symptomatic anemia, UGIB Discharge Goals Goal(s): Prevent Disease Progression Activity Recommendations Activity Limitations: per Instructions/Follow-up section . Instructions / Follow-Up Instructions / Follow-Up Please continue Protonix twice daily for 3 months, or until otherwise instructed by a physician. You will need to undergo a repeat upper endoscopy procedure within 8-12 weeks with [facility]. Someone should be in contact with you or your medical office scheduler regarding setting this up. You have anemia (low blood counts) as a result of the blood that you lost. This will need to be rechecked via bloodwork in the next couple of months to ensure it has resolved. It is recommended that you see your primary care physician within one week of discharge from the hospital to ensure you are not having any problems after discharge from the hospital. It was a pleasure taking care of you! Call if you have any questions or problems. You can reach a [place] Hospitalist on duty at [facility] 24 hours a day by calling [phone]. Take care of yourself. Deandra Joy, [facility] Center[facility] Current Hospital Diet Patient's current hospital diet: Regular Diet Discharge Diet Recommended Diet: Regular Diet Procedures Procedures Performed: EGD Pending Studies Studies pending at discharge: no Medical Emergencies . Who to Call and When: Medical Emergencies: If at any time you feel your situation is an emergency, please call 911 immediately. . Non-Emergent Contact Non-Emergency issues call your: Primary Care Provider . . "Provider Documentation" section prepared by Deandra Joy. . VTE Core Measure Inpt VTE Proph given/why not?: Contraindicated
--- NOTE | 2016-10-09 13:21 | Discharge Summary ---
Discharge Summary Date of Service Oct 09, 2016. Discharge Summary Admission Date: Oct 06, 2016 at 18:59 Discharge Date: Oct 09, 2016 Discharge Disposition: Home (assisted) Principal Diagnosis: Anemia 2/2 UGIB Procedures: EGD with cautery to MW tear Vaccinations: None Consultations: ERYN-Maxim Pending Studies/Follow-Up: see instructions below Medication Reconciliation New Medications: Pantoprazole (Protonix) 40 Mg Tab 40 MG PO BID for 30 Days, #60 TAB 3 Refills Admission Information HPI (per Admitting provider): This is a 26 year old male with no medical history presents with coffee ground, tarry emesis that began on Monday. He states he was in his usual state of health when he vomited chewing tobacco type vomitus. Later that day he noted that he had very dark colored stool as well. States that he had no pain associated with this. On the day of arrival, patient became very dizzy and had LOC. He was given some fluids en route and felt better. Upon arrival, noted to have Hgb of 9.7. No previous labwork present to compare. Patient states he has a family history of GI issues, including a paternal grandfather with stomach cancer and mom with unknown GI disease. He has never had this before. Denies medication use or any OTC medications. Has not taken NSAIDs recently. No smoking/alcohol use. Currently, symptom-free. Physical Exam (per Admitting): General Appearance: WD/WN, no apparent distress Head: normocephalic, atraumatic ENT: hearing grossly normal Respiratory/Chest: chest non-tender, lungs clear, normal breath sounds, no respiratory distress, no accessory muscle use Cardiovascular: regular rate, rhythm, no edema, no murmur Abdomen/GI: normal bowel sounds, non tender, soft Extremities/Musculoskelatal: normal capillary refill, no pedal edema Neurologic/Psych: no motor/sensory deficits, alert, normal mood/affect, oriented x 3 Skin: normal color Hospital Course 26 yo M with no NSAID use, baseline medical problems, reports of food poisoning , who has been incarcerated since Dec 2015 presents with symptomatic anemia ( syncope) 2/2 UGIB. He is s/p EGD yesterday with findings of a MW tear that was injected and cauterized as well as gastritis. He is on PPI drip for 48 hours with transition to PPI PO and iron supplementation. Uncertain etiology of vomiting. 1. Symptomatic anemia 2/2 UGIB-EGD findings with treatment yesterday as above. No further BMs since admission, denies nausea or vomiting, denies lightheadedness with ambulating to bathroom. H/H stable since admission. Tolerating regular diet. Transfer to medical floor. Cont Protonix drip through tomorrow and transition to Protonix 40mg daily and iron supplementation. Stopped IVF as tolerating PO. After 48 hours on the protonix infusion post-scope he was ambulating at baseline without any lightheadedness, he was otherwise asymptomatic, had a normal BM, was mentating clearly and tolerating a regular diet. He was afebrile and hemodynamically stable. He was discharged in stable condition back to assisted with close follow-up recommended by his PCP to watch for improvement in his anemia and orchestrate his repeat EGD in 8-12 weeks. Total time spent on discharge = 60 minutes This includes examination of the patient, discharge planning, medication reconciliation, and communication with other providers. [place] [address] Discharge Medical Patient Name: Harrison Ornelas [id number] Unit Number: [id number] Date of : 1990 Patient Status: Admitted Inpatient Attending Doctor: Deandra Joy DO DI: Medical v4 Discharge Instructions Date of Service Oct 09, 2016. Admission Reason for Admission: Symptomatic Anemia, Upper Gi Bleed Discharge Discharge Diagnosis / Problem: Symptomatic anemia, UGIB Discharge Goals Goal(s): Prevent Disease Progression Activity Recommendations Activity Limitations: per Instructions/Follow-up section . Instructions / Follow-Up Instructions / Follow-Up Please continue Protonix twice daily for 3 months, or until otherwise instructed by a physician. You will need [facility] Someone should be in contact with you or your medical claims analyst regarding setting this up. You have anemia (low blood counts) as a result of the blood that you lost. This will need to be rechecked via bloodwork in the next couple of months to ensure it has resolved. It is recommended that you see your primary care physician within one week of discharge from the hospital to ensure you are not having any problems after discharge from the hospital. It was a pleasure taking care of you! Call if you have any questions or problems. You can reach a [facility] hospitalist on duty at [facility] 24 hours a day by calling [phone]. Take care of yourself. [facility] Current Hospital Diet Patient's current hospital diet: Regular Diet Discharge Diet Recommended Diet: Regular Diet Procedures Procedures Performed: EGD Pending Studies Studies pending at discharge: no Medical Emergencies . Who to Call and When: Medical Emergencies: If at any time you feel your situation is an emergency, please call 911 immediately. . Non-Emergent Contact Non-Emergency issues call your: Primary Care Provider . . "Provider Documentation" section prepared by Deandra Joy. . VTE Core Measure Inpt VTE Proph given/why not?: Contraindicated
[2016-10-09 14:05] VITALS: BP 142/69; PULSE 81; TEMP 36.7; O2SAT 100
== END 2016-10-09 15:04 | disposition home or self-care (01) | DRG 328 ==
LOC: EDBD 15:40 → C.EDA 15:43 → C.2E 18:59 → ENRESERV 20:00 → EDBEDREQSVC 10-08 11:29 → ENRESERV 10-08 11:49 → C.MED 10-08 12:33
PROVIDERS: ADMIT Family Medicine; ATTEND Hospitalist
PROC: 0DQ48ZZ Repair Esophagogastric Junction, Via Natural or Artificial Opening Endoscopic (ICD-10-PCS; principal; 2016-10-07 14:24)
PROC: 3E0G8GC Introduction of Other Therapeutic Substance into Upper GI, Via Natural or Artificial Opening Endoscopic (ICD-10-PCS; principal; 2016-10-07 14:24)
DX: K22.6 Gastro-esophageal laceration-hemorrhage syndrome (principal); K29.70 Gastritis, unspecified, without bleeding; D50.0 Iron deficiency anemia secondary to blood loss (chronic); Z87.891 Personal history of nicotine dependence; Z80.0 Family history of malignant neoplasm of digestive organs